=== PATIENT | male | born 1970 | race Caucasian/White ===

== ENCOUNTER 2020-11-06 23:25 | Emergency (ER) | payer MEDICAID ==
[~2020-11-06] VITALS: Ht 185.4 cm; Wt 101.6 kg
--- NOTE | 2020-11-06 23:45 | NUR ---
BIBFAMILY. DIZZY, BLURRED VISION AND RESOLVED L ARM NUMBNESS. LKWT: 2320. A/OX4. TOLERATING R/A WELL WITH NO SOB. NO SLURRED SPEACH NOTED.
--- NOTE | 2020-11-06 23:50 | NUR ---
RAC #20G S/L; PATENT AND INTACT. PT PASSED SWALLOW EVAL.
[2020-11-07] MEDS ORDERED: ONDANSETRON HCL/PF 4 MG/2 ML VIAL IV ONE
[2020-11-07] MEDS ORDERED: MECLIZINE HCL 12.5 MG TABLET PO ONE
[2020-11-07] MEDS ORDERED: IV NS 0.9% 500 ML BAG IV ONE
--- NOTE | 2020-11-07 | NUR ---
ADDENDUM: Intravenous End Time Documentation: Normal saline 500 cc (IV-WO): start time: 0000 am ; end time: 0100 am IV site: [facility] PIV # 20 Port # 1
[2020-11-07 00:07] LABS: BASOPHILS # (AUTO) 0.1 K/uL (0.0-0.2); BASOPHILS % (AUTO) 1.8 % (0.0-2.0); EOSINOPHILS % (AUTO) 3.9 % (0.0-6.0); HEMATOCRIT 47 % (39-51); LYMPHOCYTES # (AUTO) 1.9 K/uL (0.8-4.8); LYMPHOCYTES % (AUTO) 23.5 % (20.0-44.0); MEAN CORPUSCULAR HGB CONC 34 g/dl (31.0-36.0); MEAN CORPUSCULAR VOLUME 82 fL (80-96); MONOCYTES # (AUTO) 0.7 K/uL (0.1-1.30); MONOCYTES % (AUTO) 8.6 % (2.0-12.0); NEUTROPHILS % (AUTO) 62.2 % (43.0-81.0); PLATELET COUNT (AUTO) 300 K/uL (150-450); RED BLOOD CELL COUNT(AUTO) 5.76 MIL/uL (4.5-6.0)
[2020-11-07] MEDS ORDERED: ONDANSETRON HCL/PF 4 MG/2 ML VIAL ONE (00:08)
[2020-11-07] MEDS ORDERED: MECLIZINE HCL 12.5 MG TABLET ONE (00:09)
[2020-11-07 00:20] LABS: ALANINE AMINOTRANSFERASE 38 U/L (12-78); ALBUMIN 4.3 g/dL (3.4-5.0); ALKALINE PHOSPHATASE 63 U/L (46-116); ASPARTATE AMINOTRANSFERASE 28 U/L (15-37); BILIRUBIN,DIRECT 0.1 mg/dL (0.0-0.2); BILIRUBIN,TOTAL 0.4 mg/dL (0.2-1.0); CALCIUM, SERUM 9.2 mg/dL (8.5-10.1); CARBON DIOXIDE 29 mmol/L (21-32); CHLORIDE 105 mmol/L (98-107); CREATININE 1.4 mg/dL (0.6-1.3); GLUCOSE 120 mg/dL (74-106); POTASSIUM 3.8 mmol/L (3.5-5.1); SODIUM SERUM 144 mmol/L (136-145); TOTAL PROTEIN, SERUM 7.8 g/dL (6.4-8.2); UREA NITROGEN, BLOOD 30 mg/dL (7-18)
--- NOTE | 2020-11-07 00:26 | NUR ---
PT TAKEN TO RADIOLOGY FOR CT
--- NOTE | 2020-11-07 00:35 | NUR ---
PT RETURNED TO ER ROOM 2
--- NOTE | 2020-11-07 00:40 | NUR ---
COVID SWAB VIA [employer] COLLECTED AND SENT TO LAB Addendum: 11/07/20 at 0040 by ALISON ERROR WRONG PT
--- NOTE | 2020-11-07 00:50 | NUR ---
URINE SAMPLE COLLECTED AND SENT TO LAB
[2020-11-07] MEDS ORDERED: ONDA4TAB5 PO (01:03)
[2020-11-07] MEDS ORDERED: MECL-159 PO (01:03)
[2020-11-07 01:10] LABS: BILIRUBIN,URINE Negative (NEGATIVE); COLOR,URINE YELLOW (YELLOW); LEUKOCYTE ESTERASE ,URINE Negative (NEGATIVE); NITRITE, URINE Negative (NEGATIVE); PH,URINE 5.5 (5.0-8.0); PROTEIN,URINE Negative (NEGATIVE); UGLUCOSE Negative (NEGATIVE)
--- NOTE | 2020-11-07 01:16 | NUR ---
Patient discharged to home in stable condition. Written and verbal after care instructions given. Patient verbalizes understanding of instruction. IV removed. Catheter intact and site benign. Pressure and 4x4 applied to site. No bleeding noted.Pt ambulatory with a steady gait
[2020-11-07 01:22] VITALS: BP 139/72
== END 2020-11-07 01:16 | disposition home or self-care (01) ==
LOC: ER 23:31
DX: R42 Dizziness and giddiness (principal); N17.9 Acute kidney failure, unspecified; Z79.899 Other long term (current) drug therapy
CPT/HCPCS: 36415; 70450; 71045; 80048; 80076; 81003; 82962; 84484; 85025; 85730; 93005; 96361; 96374; 99285; J2405; J7040; J8597